=== PATIENT | female | born 1960 | race Caucasian/White ===

== ENCOUNTER 2022-04-03 06:33 | Observation (INO) ==
--- NOTE | 2022-03-06 14:01 | PAT Medication Instructions ---
Medication Instructions Date of Service March 06, 2022 Home Medications omega-3 fatty acids 1,000 mg capsule (Fish Oil Concentrate) 1,000 mg PO HS cimetidine 400 mg tablet 400 mg PO HS docusate sodium 100 mg capsule (Colace) 100 mg PO BID ibuprofen 800 mg tablet 800 mg PO TID PRN Pain polyethylene glycol 3350 17 gram/dose oral powder (Miralax) 17 g PO HS turmeric root extract 500 mg tablet 500 mg PO HS zolpidem 5 mg tablet (Ambien) 5 mg PO HS ASK your surgeon for instructions ibuprofen 800 mg tablet 800 mg PO TID PRN Pain STOP taking 2 weeks before surgery (or as soon as possible if surgery is within 2 weeks) omega-3 fatty acids 1,000 mg capsule (Fish Oil Concentrate) 1,000 mg PO HS turmeric root extract 500 mg tablet 500 mg PO HS DO NOT take the morning of surgery docusate sodium 100 mg capsule (Colace) 100 mg PO BID Take evening before surgery cimetidine 400 mg tablet 400 mg PO HS docusate sodium 100 mg capsule (Colace) 100 mg PO BID polyethylene glycol 3350 17 gram/dose oral powder (Miralax) 17 g PO HS zolpidem 5 mg tablet (Ambien) 5 mg PO HS Other Notes If you have any questions please call us at [phone] or [phone] or [phone] or [phone]
--- NOTE | 2022-03-08 10:41 | Anesthesiology Consultation ---
Date of Service March 08, 2022 Assessment & Plan (1) Encounter for pre-operative examination: Chart Review Chart Review: Acceptable Risk for Surgery and Patient seen in Pre Admission Testing -Pt is NOT a Same Day Joint candidate due to bilateral TKA. Pros and cons discussed regarding one sided TKA vs bilateral TKA- pt wishes to proceed with bilateral TKA Per PAT appt on 03/08/22, patient denies any recent travel or large group activities. Pt is vaccinated for Covid. Will leave to surgeon's discretion if preop Covid testing needed. Educated on importance of using Covid precautions one week prior to surgery Teaching & Discussion Pre-Anesthesia Teaching/Discussion Notes: Instructed NPO after midnight before surgery,except medications with 15 cc of water. Medication instructions provided according to the PAT guidelines. History Surgery Operation Date: 04/03/22 10:40 Proposed Procedures p Bilateral Total Knee Arthroplasty - Travis Drew MD Height/Weight Height: 5 ft 8.5 in Weight: 73 kg Allergies Allergy/AdvReac Type Severity Reaction Status Date / Time codeine Allergy Mild GI SYMPTOMS Verified 03/06/22 13:19 meperidine Allergy Mild N & V Verified 03/06/22 13:19 Medications Home Medications Medication Instructions Recorded Confirmed Last Taken omega-3 fatty acids 1,000 mg 1,000 mg PO HS 03/16/19 03/06/22 Unknown capsule (Fish Oil Concentrate) cimetidine 400 mg tablet 400 mg PO HS 03/06/22 03/06/22 Unknown docusate sodium 100 mg capsule 100 mg PO BID 03/06/22 03/06/22 Unknown (Colace) ibuprofen 800 mg tablet 800 mg PO TID PRN Pain 03/06/22 03/06/22 Unknown polyethylene glycol 3350 17 17 g PO HS 03/06/22 03/06/22 Unknown gram/dose oral powder (Miralax) turmeric root extract 500 mg tablet 500 mg PO HS 03/06/22 03/06/22 Unknown zolpidem 5 mg tablet (Ambien) 5 mg PO HS 03/06/22 03/06/22 Unknown Wheeled Walker #1 ea 03/08/22 03/08/22 Unknown celecoxib 100 mg capsule (Celebrex) 200 mg PO DAILY 30 days #60 caps 03/08/22 03/08/22 Unknown Past Medical History Medical History Degenerative arthritis of knee, bilateral GERD (gastroesophageal reflux disease) Well controlled and stable History of COVID-19 05/2019, had positive antibodies Most recent, early 11/2021, home test, not hosp; "mild symptoms, with headache">resolved. Nausea and vomiting after administration of anesthetic agent "Hospitalized following surgery due to terrible vomiting following surgery/anesthesia" Has worse issues with GA Exercise / Class Metabolic Activity II 4-5 Yardwork/Stairs/Walk up hill (one flight of stairs - no chest pain or SOB ) Past Surgical History Surgical History Hx of arthroscopic knee surgery LT. knee, meniscus repair Hx of cataract extraction rt/lt Hx of cholecystectomy Hx of colonoscopy Hx of hemorrhoidectomy Hx of sigmoidoscopy Past Anesthesia History No Hx of Anesthesia Complications (with exception to PONV (severe with GA)) and No Family Hx of Anesthesia Complications (with exception to mother - severe PONV ) History of PONV History of PONV (significant (improved with pre medicated with IV anti nausea medication)) and Hx of Motion Sickness Social History Smoking Status: Never smoker Do You Dip or Chew Tobacco: No Hx Alcohol Use: Yes Alcohol type: wine alcohol intake frequency: a few times a week Hx Substance Use: No substance use type: does not use Review of Systems Patient denies chest pain, shortness of breath, dyspnea on exertion, cough, wheezing, palpitations. No hx of seizures, stroke, [place], apnea/snoring. No hx of blood clots or blood transfusions Physical Exam Vital Signs VITALS BP 138/86 P 74 TEMP 98.2 SP02 99% RESP 16 Constitutional no acute distress ENMT Mouth: no TMJ clicking Thyromental Distance: < 3.5 Finger Breadths (2.5) Mallampati Class: II Permanent implant on right bottom side Bridge upper left side Neck + limited neck extension (mild) Respiratory normal respiratory effort; no respiratory distress Auscultation: lungs clear to auscultation bilaterally; no wheezes Cardiovascular Rate/Rhythm: regular rate and regular rhythm Heart Sounds: no murmur Vessels: no carotid bruit Musculoskeletal Spine: + pain with cervical ROM Extremities: extremities normal to inspection Psychiatric Orientation: alert Lab Results Anesthesia Preop Results Results Anesthesia Widget: WBC 5.43 K/ul (4.8-10.8) 03/08/22 Hgb 13.6 g/dl (12.0-16.0) 03/08/22 Hct 39.3 % (34.1-44.9) 03/08/22 Plt 244 K/uL (130-400) 03/08/22 Na 141 mmol/L (136-145) 03/08/22 K 4.4 mmol/L (3.5-5.1) 03/08/22 Cl 106 mmol/L (98-107) 03/08/22 CO2 29 mmol/L (21-32) 03/08/22 BUN 10 mg/dl (6-23) 03/08/22 Creat 0.56 mg/dl (0.6-1.2) L 03/08/22 Glucose Level 95 mg/dl (70-99(Fasting)) 03/08/22 PT 11.2 Seconds (9.0-12.0) 03/08/22 PTT 24.3 Seconds (21.0-31.0) 03/08/22 INR 1.1 (0.9-1.1) 03/08/22 Blood Type A Positive 03/08/22 Antibody Screen NEGATIVE 03/08/22 Testing Electrocardiogram Date: 03/08/22 Findings: + NSR @ (61bpm ) Normal EKG per cardio. Chest X-Ray Date: 03/08/22 Findings: + NAD COVID-19 Risk Screen Screening Information COVID-19 Screen Date: 03/08/22 Exposure 21 Days Family/Household +COVID Last 21 Days: No Exposure 10 Days Any COVID Exposure Last 10 Days: No Symptoms Last 10 Days Experienced COVID Sx Last 10 Days: No + COVID 0-90 Days COVID + in Last 0-90 Days: No Risk Plan COVID Risk Plan: No Risk Identified Patient Education COVID Preop Screening Education Complete: Yes
[~2022-04-03 06:33] MED LIST: ACETAMINOPHEN 500 MG TAB PO SCH; BUPIVACAINE LIPOSOME/PF 266 MG, BUPIVACAINE/EPINEPHRINE 50 ML, SODIUM CHLORIDE 0.9% 30 ... INFIL SCH; CeleBREX 200 MG CAP PO SCH; FAMOTIDINE 20 MG TAB PO SCH; LR 60ML/HR IV SCH; METOCLOPRAMIDE HCL 10 MG TABLET PO SCH; Scopolamine 1 MG TDSY TD SCH; TRANEXAMIC ACID 1,000 MG **IV Intra-op IV SCH; ceFAZolin 2000MG 2,000 MG/15 ML SYR IV SCH
[2022-04-03] MEDS ORDERED: ROPIVACAINE 0.5% 5 MG/ML 30 ML VIAL ONE (06:35)
[2022-04-03] MEDS ORDERED: BUPIVACAINE 0.5 % 5 MG/1 ML PF 10ML VIAL ONE (06:35)
--- NOTE | 2022-04-03 06:49 | History & Physical Bridge Note ---
Date of Service April 03, 2022 History & Physical Bridge Note I have examined the patient, reviewed the History & Physical and in the interval since the performance of the History & Physical I have noted the following changes of clinical significance: no changes noted
[2022-04-03] MEDS: LR 500ML BOLUS, THEN 15ML/HR IV SCH (07:23)
[2022-04-03] MEDS ORDERED: PROPOFOL IV EMULSION 10 MG/ML 20 ML VIAL IV ONE ×3 (07:45→12:03)
[2022-04-03] MEDS ORDERED: MIDAZOLAM HCL 1 MG/ML 2ML VIAL ONE ×2 (07:45→11:22)
[2022-04-03] MEDS ORDERED: ONDANSETRON INJ 2 MG/ML 2 ML VIAL IV PRN ×2 (08:11→14:01)
[2022-04-03] MEDS ORDERED: ATROPINE SULFATE 0.1 MG/ML 10ML SYR IV PRN (08:11)
[2022-04-03] MEDS ORDERED: ePHEDrine sulfate 50 MG/ML AMP IV PRN (08:11)
[2022-04-03] MEDS ORDERED: fentaNYL citrate 100 MCG/2 ML VIAL IV PRN (08:11)
[2022-04-03] MEDS ORDERED: BUPIVACAINE LIPOSOME 1.3% 266 MG/20 ML VIAL ONE (08:57)
[2022-04-03] MEDS ORDERED: BUPIVACAINE/EPINEPHRINE 0.25% 1:200,000 30 ML VIAL ONE (08:57)
[2022-04-03] MEDS ORDERED: SODIUM CHLORIDE 0.9% PF 50 ML VIAL ONE (08:57)
[2022-04-03] MEDS ORDERED: ONDANSETRON INJ 2 MG/ML 2 ML VIAL ONE (09:32)
[2022-04-03] MEDS ORDERED: fentaNYL citrate 100 MCG/2 ML VIAL ONE (09:32)
[2022-04-03] MEDS ORDERED: ePHEDrine sulfate 50 MG/ML AMP ONE (09:52)
[2022-04-03] MEDS ORDERED: KETAMINE 50 MG/5 ML SYRINGE ONE (09:57)
[2022-04-03] MEDS ORDERED: PHENYLEPHRINE HCL 10 MG/ML VIAL ONE (11:58)
[2022-04-03] MEDS ORDERED: KETOROLAC 30 MG/ML VIAL ONE (12:17)
--- NOTE | 2022-04-03 12:49 | Operative Report ---
PG Post Operative Report Pre & Post Diagnosis Operation Date: 04/03/22 08:50 Pre-Op Diagnosis: Bilateral Knee Advanced Degenerative Joint Disease Post-Op Diagnosis: Bilateral Knee Advanced Degenerative Joint Disease I identified the patient and participated in the time-out.: Yes Procedure Operation Date: 04/03/22 08:50 Actual Procedures p Bilateral Total Knee Arthroplasty(Bilateral) - Travis Drew MD Surgeon Travis Drew MD Doctor'S Assistant Rashawn Spears PA-C Estimated Blood Loss 100 Findings Consistent with Post-Op Diagnosis Operative findings were advanced bilateral knee DJD. She had extensive grade 4 [id number]-lt-qlys disease most severely affecting the medial compartment of both knees. Both knees were similar severity. She had osteophytes primarily on the medial compartment. Moderate-sized joint effusion with fixed varus deformities to her knees. She had about a 10 degree flexion contracture bilaterally. Fluids 1300 cc Specimens Bilateral knees sent for pathology Drains None Anesthesia Type Spinal MAC Complications none Disposition Accompanied Patient To Recovery: No Indications Patient is a 61-year-old very healthy female has had a long history of bilateral knee pain discomfort describes gotten worse over the past 10 to 15 years. She been through extensive conservative treatment of years which is became less successful. X-rays show progressive severe arthritic the knees. She elected proceed with total knee arthroplasty. She was strongly desiring to both knees at the same time. Description of Procedure Operative implants consisted of: Left-sided implants consisted of: 1. Biomet Vanguard size 65 left posterior stabilized femoral component. 2. Biomet size 71 tibial tray. 3. 14 mm posterior stabilized polyethylene insert. 4. 28 x 8 all Paller patella. Right side implants consisted of: 1. Biomet Vanguard size 65 right posterior stabilized femoral component. 2. Biomet size 71 tibial tray. 3. 12 mm posterior stabilized polyethylene insert. 4. 28 x 8 all Paller patella. The patient was taken to the operating, identified, placed on the operating table supine position. All contact areas were appropriately padded. IV antibiotics tried by anesthesia team. A spinal anesthetic and been implemented in the holding area as well as bilateral abductor canal block. A Wong catheter was placed in sterile fashion. Bilateral thigh tourniquets were placed. Both lower extremities were then prepped and draped in usual sterile fashion. Attention was first drawn to the left leg. Left leg was elevated exsanguinated with use of an Esmarch and the tourniquet was set at 300 mmHg. An anterior approach left knee was then performed to longitudinal incision centered over the patella. Sharp dissection was got through subcutaneous tissue down the extensor mechanism. A medial parapatellar arthrotomy incision was made. Some subperiosteal dissection was carried out medially. The fat pad was resected from Neath patella tendon. Lateral patellofemoral ligament was released. Patella subluxated laterally and the knee was flexed. The osteophytes were taken off distal femur. The ACL and PCL were then released from distal femur. The tibia was subluxated anteriorly. External tibial alignment jig was then placed in the anterior face of the tibia and adjusted 14 mm medially. The proximal tibial cut was made remove about 2 mm of bone from the most deficient aspect medial tibial plateau. Some osteophytes taken off medial and posterior medially. The tibia sized to a size 71. Attention drawn the femur. The distal femur examined the sharp drop with intramedullary canal was suction. A left 5 degree valgus cutting guide was placed. Distal femoral cutting block was pinned in place. Distal femoral cut was made to take an additional 3 mm of bone off the distal femur. Femur was then sized to a size 65. The AP cutting block was pinned parallel to the epicondylar axis which was 3 degrees of external rotation. The anterior cut, anterior chamfer, posterior cut, posterior chamfer cuts were made. The box cutting guide was placed in just slight lateral box cut was made. The knee was flexed. The remnants of the medial and lateral menisci were excised. The osteophyte taken off the posterior aspect of the femur. A trial femoral component was placed. The tibial tray was pinned in maximum external rotation and the drill and stem punch were used to create defect in the proximal tibia for the tibial tray. Knee was then trialed and the 14 mm insert fit most appropriately. Attention drawn the patella. The patella was cleaned of all soft tissues. Patella thickness measured 20 mm in thickness was cut down to 13. Was sized to a size 28 patella. The lug holes were drilled for the 28 patella. The lateral osteophytes removed. Patella button was placed. Knee was taken through range of motion patella tracked nicely with no thumbs test. Attention drawn to placing permanent components. Nupathe all trial components were removed. Bone plug was placed into the distal femur limit blood loss. Double batch Palacos G cement was mixed. A Biomet Vanguard size 65 left posterior stabilized femoral component, a size 71 tibial tray, a 14 mm posterior stabilized polyethylene insert, and a 28 x 8 all Paller patella then cemented in place. The knee was brought out into full extension total cement hardened. Final cement check was then performed. The pericapsular tissues were injected with 50 cc of a combination of 10 cc of Exparel, 25 cc of half percent Marcaine with epinephrine and 15 cc of normal saline. The tourniquet was let down for final tourniquet time of 55 minutes. Hemostasis reduced electrocautery. The patient did receive 1 g tranexamic acid. The extensor mechanism then closed with combination 1 PDS suture #1 Vicryl suture in a [id number] fashion. Extensor mechanism checked found to be intact and the subcutaneous tissue then closed 2 Dexon suture buried erupted fashion skin was closed skin kyle. The leg was then cleaned and dried and sterile dressing was Xeroform, 4 x 4's, ABD pad and sterile cast padding and Sheldon bandage were applied to this knee. During closure of the subcutaneous tissues and skin of the left leg a similar procedure was begun on the right leg. The right leg was Elave exsanguinated with use of an Esmarch in terms playset 300 mmHg. An anterior approach of the right knee was then performed through a longitudinal incision centered over the patella. Sharp dissection Through subcutaneous tissue down the extensor mechanism. Medial parapatellar arthrotomy incision was made. Subperiosteal dissection was carried out medially. The fat pad was resected from Neath patella tendon. Lateral patellofemoral ligament was released. Patella was subluxated laterally and the knee was flexed. The osteophytes taken off distal femur. The ACL and PCL then released from distal femur the tibia subluxated anteriorly. External tibial alignment jig was then placed the interface the tibia and adjusted 14 mm medially. Proximal tibial cut was made removed by millimeter bone from most deficient aspect medial tibial plateau. The tibia sized to a size 71. Some osteophytes taken off medial and posterior medially. Attention drawn the femur. The distal femur during the sharp drop with intramedullary canal was suction. A right 5 degree valgus cutting guide was placed. Distal femoral cutting block was pinned in place. Distal femoral cut was made to take an additional 3 mm of bone off the distal femur. The femur was then sized and sized to a size 65. The AP cutting block was pinned parallel to the epicondylar axis which was 3 degrees of external rotation. The anterior cut, anterior chamfer, posterior cut, posterior chamfer cuts were made. Box cutting guide was placed in just slight lateral box cut was made. The knee was flexed. The remnants of the medial and lateral menisci were excised. The osteophytes were taken off the posterior aspect the femur. A trial femoral component was placed. The tibial tray was pinned in maximum external rotation and the drill and stem punch used to create defect in proximal tibia for the tibial tray. The knee was then trialed and the 12 mm insert fit most appropriately. Attention drawn the patella. The patella was cleaned of all soft tissues. Patella thickness measured 20 mm in thickness was cut down to 13. Was sized to a size 28 patella. The lug holes were drilled for the 28 patella. The lateral osteophytes removed. Patella button was placed. Knee was taken through range of motion and the patella tracked nicely with no thumbs test. Attention drawn to place the permanent components. Nupathe all trial components were removed. A bone plug was placed in the distal femur limit blood loss. Double batch Palacos G cement was mixed. A Biomet Vanguard size 65 right posterior stabilized femoral component, size 71 tibial tray, a 12 mm posterior stabilized polyethylene insert, and a 28 x 8 all Paller patella then cemented in place. New spreadout into full extension total cement hardened. Final cement check was then performed. Pericapsular tissues were injected with total of 50 cc of combination of 10% Exparel, 25 cc of half percent Marcaine with epinephrine and 15 cc of normal saline. The the tourniquet was then let down for final turn time 58 minutes. Hemostasis reduced electrocautery. Extensor mechanism closed with combination 1 PDS suture #1 Vicryl suture in [id number] fashion. Extensor mechanism checked found to be intact the subcutaneous tissues then closed with 2 Dexon suture in buried erupted fashion skin was closed skin kyle. Leg was then cleaned and dried a sterile dressing was Xeroform, 4 x 4's, sterile cast padding, Sheldon bandage were applied. An additional 2 rolls of soft roll and an Sheldon bandage were then applied to the left leg. The patient was then transferred to the recovery room in stable condition. Patient tolerated procedure well and there are no complications. Rashawn Spears, my physician geriatric assistant, was present for the entire procedure. His assistance was essential and required for appropriate patient positioning, prepping and draping, surgical exposure, performing the technical details of the operation, placement the implants, closure of the wound, and placement of the sterile bandage. I attest to the content of the Intraoperative Record and any orders documented therein. Any exceptions are noted below.
--- NOTE | 2022-04-03 13:19 | Anesthesiology Progress Note ---
Date of Service April 03, 2022 Anesthesia Post Procedure Vital Signs Vital Signs: Temp Pulse Resp BP Pulse Ox O2 Del Method O2 Flow Rate 04/03/22 12:45 75 21 116/67 100 Oxymask 6 04/03/22 12:35 72 19 110/64 100 Oxymask 6 04/03/22 12:29 97.2 F L 70 13 113/60 100 Oxymask 6 04/03/22 06:54 98.1 F 94 H 20 149/92 H 97 Room Air Pain Intensity Bilateral Knee: Pain Intensity: 0 Transfer of Care Handoff Completed per policy Notes Mental Status: alert / awake / arousable and participated in evaluation Patient Amnestic to Procedure: Yes Nausea / Vomiting: adequately controlled Pain: adequately controlled Airway Patency, RR, SpO2: stable & adequate BP & HR: stable & adequate Hydration State: stable & adequate Neuraxial Anesthesia: was administered and sensory block is resolving Anesthetic Complications: no major complications apparent and Pt Satisfied with anesthetic care
--- NOTE | 2022-04-03 13:27 | XRay Report ---
XR knee RT 1 or 2V routine, XR knee LT 1 or 2V routine CLINICAL HISTORY: Surgical Post Op TECHNIQUE: 2 views of the bilateral knees were obtained. Comparison: Comparison is made to knee radiographs 03/08/2022 FINDINGS: Patient is status post total knee arthroplasty with expected postsurgical changes including soft tiss ue swelling and subcutaneous emphysema. No periarticular lucency or hardware fracture is seen. IMPRESSION: Expected postoperative appearance of the bilateral knees. ACT 112: Negative or not required by law. Electronically signed by: Rod Garcia M.D. 04/03/2022 1:25 PM
[2022-04-03] MEDS ORDERED: bisacodyL 10 MG SUPP PR PRN (14:01)
[2022-04-03] MEDS ORDERED: ALUMINUM/MAGNESIUM SUSP 30 ML UDC PO PRN (14:01)
[2022-04-03] MEDS ORDERED: MAGNESIUM HYDROXIDE SUSP 30 ML UDC PO PRN (14:01)
[2022-04-03] MEDS ORDERED: diphenhydrAMINE Capsule 25 MG CAP PO PRN (14:01)
[2022-04-03] MEDS ORDERED: NALOXONE HCL 0.4 MG/1 ML VIAL/CARP IV PRN (14:01)
[2022-04-03] MEDS ORDERED: ONDANSETRON 4 MG OD TAB PO PRN (14:12)
[2022-04-03] MEDS: SODIUM CHLORIDE 0.9% 1000ML 1,000 ML IV SCH ×2 (14:19→23:48)
[2022-04-03] MEDS: ACETAMINOPHEN 500 MG TAB PO SCH ×2 (15:29→20:44)
[2022-04-03] MEDS: Scopolamine CHECK PATCH PLACEMENT SCH ×2 (15:29→23:49)
[2022-04-03] MEDS: KETOROLAC 30 MG/ML VIAL IV SCH ×2 (17:03→23:50)
[2022-04-03] MEDS: ASCORBIC ACID 500 MG TAB PO SCH (17:03)
[2022-04-03] MEDS: HYDROmorphone INJ 0.5 MG/0.5 ML SYR IV PRN ×2 (17:38→22:05)
[2022-04-03] MEDS ORDERED: TRANEXAMIC ACID / 0.7% NACL 1,000 MG/100 ML BAG IV SCH (18:45)
[2022-04-03] MEDS: ceFAZolin 1000MG 1,000 MG/7.5 ML SYR IV SCH (18:59)
[2022-04-03] MEDS: METOCLOPRAMIDE HCL INJ 5 MG/ML 2 ML VIAL IV PRN (20:01)
[2022-04-03] MEDS: ASPIRIN 81 MG ECTAB PO SCH (20:45)
[2022-04-03] MEDS: DOCUSATE SODIUM 100 MG CAP PO SCH (20:45)
[2022-04-03] MEDS: OMEGA-3 (PURIFIED FISH OIL) 1 GM CAP PO SCH (20:46)
[2022-04-03] MEDS: FAMOTIDINE 20 MG TAB PO SCH (20:46)
[2022-04-03] MEDS: SENNA 8.6 MG TAB PO SCH (20:46)
[2022-04-03] MEDS: POLYETHYLENE (MIRALAX) 17 GM PACK PO SCH (20:47)
[2022-04-03] MEDS: ZOLPIDEM TARTRATE 5 MG TAB PO SCH (20:48)
[2022-04-03] MEDS ORDERED: DOCUSATE SODIUM/SENNA 50/8.6MG TAB PO SCH (21:00)
[2022-04-03] MEDS ORDERED: DOCUSATE SODIUM 100 MG CAP PO SCH (21:00)
[2022-04-03] MEDS ORDERED: NON-FORMULARY MEDICATION (Turmeric Root Extract 500 mg Tablet) PO SCH (21:00)
[2022-04-04] MEDS: HYDROmorphone HCL 2 MG TAB PO PRN ×3 (01:14→15:33)
[2022-04-04] MEDS: ceFAZolin 1000MG 1,000 MG/7.5 ML SYR IV SCH (02:54)
[2022-04-04] MEDS: HYDROmorphone INJ 0.5 MG/0.5 ML SYR IV PRN ×3 (02:58→21:11)
[2022-04-04] MEDS: METOCLOPRAMIDE HCL INJ 5 MG/ML 2 ML VIAL IV PRN ×3 (02:58→21:08)
[2022-04-04] MEDS: KETOROLAC 30 MG/ML VIAL IV SCH ×3 (05:59→17:05)
[2022-04-04] MEDS: LR 500ML BOLUS, THEN 15ML/HR IV SCH (06:00)
[2022-04-04 07:49] LABS: Hematocrit (blood only) 28.6 % (34.1-44.9); Hemoglobin 9.9 g/dl (12.0-16.0); Mean Corpuscular Hemoglobin 30.8 pg (25.0-34.0); Mean Corpuscular Hgb Conc 34.6 g/dL (32.0-36.0); Mean Corpuscular Volume 89.1 fL (80.0-100.0); Mean Platelet Volume 9.8 fL (9.4-12.3); Platelet Count 180 K/uL (130-400); RDW Coefficient of Variation 12.1 % (11.5-14.5); RDW Standard Deviation 39.1 fL (36.4-46.3); Red Blood Count 3.21 M/uL (3.93-5.22)
[2022-04-04] MEDS ORDERED: dexAMETHasone 10 MG in SYRINGE 0 ML IV SCH (08:00)
[2022-04-04] MEDS: Scopolamine CHECK PATCH PLACEMENT SCH ×2 (08:01→17:05)
[2022-04-04 08:20] LABS: BUN Creatinine Ratio 21.6 (10-20); Calcium 7.7 mg/dl (8.5-10.1); Creatinine Clr Calc Pharmacy 120.5 ml/min; Est GFR (African American) 121.1 ml/min; Est GFR (Non-African American) 104.5 ml/min; Potassium 4.1 mmol/L (3.5-5.1)
[2022-04-04] MEDS: ASCORBIC ACID 500 MG TAB PO SCH ×2 (08:37→17:43)
[2022-04-04] MEDS: MULTIVITAMIN TAB PO SCH (08:37)
[2022-04-04] MEDS: ACETAMINOPHEN 500 MG TAB PO SCH ×3 (08:38→21:12)
[2022-04-04] MEDS: DOCUSATE SODIUM 100 MG CAP PO SCH ×2 (08:38→21:13)
[2022-04-04] MEDS: ASPIRIN 81 MG ECTAB PO SCH ×2 (08:38→21:13)
--- NOTE | 2022-04-04 15:32 | Progress Notes ---
DATE OF SERVICE: 04/04/2022. SUBJECTIVE: A 61-year-old female postoperative day 1 from bilateral knee replacements. She is doing okay. Dizzy earlier today with therapy. She was able to get up and out of bed into a chair. Still having quite a bit of pain and discomfort in both knees. No chest pain or shortness of breath. Carlo e intermittent nausea. OBJECTIVE: VITAL SIGNS: Temperature 36.5. Vital signs are stable. GENERAL: Shows a pleasant middle-aged female. She is lying in bed, looks reasonably comfortable. LUNGS: Clear to auscultation. HEART: Regular rate and rhythm. ABDOMEN: Soft, nontender, nondistended. EXTREMITIES: Grossly neurovascularly intact except as follows. Examination of both lower extremities reveals the legs to be well aligned. Dressings are clean, dry, and intact. She can dorsiflex and plantarflex both feet appropriately. She is neurologically intac t. LABORATORY DATA: Hemoglobin 9.9. Hematocrit 28.6. Electrolytes are stable. ASSESSMENT: A 61-year-old female postoperative day 1 from bilateral knee replacements, doing okay. She struggled a little bit with pain, which is not unexpected. She is neurologically intact. PLAN: 1. DVT prophylaxis includes thigh-high TEDs, SCDs, and aspirin twice a day. 2. PT/OT, weightbear as tolerated. Bilateral knee protocol. 3. Pain control, doing okay with current pain regimen. We will try and maximize her pain control wi th multiple modalities including Tylenol, Toradol, Dilaudid. Also, providing Decadron. 4. Disposition: She is planning to be discharged to home with some home health once adequately remington elayne and medically stable and getting around safely. Job ID: [id number]
[2022-04-04] MEDS: ZOLPIDEM TARTRATE 5 MG TAB PO SCH (21:11)
[2022-04-04] MEDS: OMEGA-3 (PURIFIED FISH OIL) 1 GM CAP PO SCH (21:14)
[2022-04-04] MEDS: FAMOTIDINE 20 MG TAB PO SCH (21:14)
[2022-04-04] MEDS: POLYETHYLENE (MIRALAX) 17 GM PACK PO SCH (21:14)
[2022-04-04] MEDS: SENNA 8.6 MG TAB PO SCH (21:14)
[2022-04-05] MEDS: KETOROLAC 30 MG/ML VIAL IV SCH ×3 (00:33→12:35)
[2022-04-05] MEDS: Scopolamine CHECK PATCH PLACEMENT SCH ×3 (00:33→16:03)
[2022-04-05] MEDS: LR 500ML BOLUS, THEN 15ML/HR IV SCH (00:34)
[2022-04-05] MEDS: HYDROmorphone HCL 2 MG TAB PO PRN ×3 (00:57→14:56)
[2022-04-05 06:38] LABS: Hematocrit (blood only) 28.7 % (34.1-44.9); Mean Corpuscular Hemoglobin 31.2 pg (25.0-34.0); Mean Corpuscular Hgb Conc 34.8 g/dL (32.0-36.0); Mean Corpuscular Volume 89.4 fL (80.0-100.0); Mean Platelet Volume 9.7 fL (9.4-12.3); Platelet Count 193 K/uL (130-400); RDW Coefficient of Variation 12.2 % (11.5-14.5); RDW Standard Deviation 39.9 fL (36.4-46.3); Red Blood Count 3.21 M/uL (3.93-5.22); White Blood Count 7.42 K/ul (4.8-10.8)
[2022-04-05 07:03] LABS: BUN Creatinine Ratio 16.7 (10-20); Calcium 8.6 mg/dl (8.5-10.1); Est GFR (African American) 123.6 ml/min; Est GFR (Non-African American) 106.6 ml/min; Potassium 3.8 mmol/L (3.5-5.1)
--- NOTE | 2022-04-05 07:47 | Progress Notes ---
DATE OF SERVICE: 04/05/2022. SUBJECTIVE: A 61-year-old female postoperative day 2 from bilateral knee replacement. She is doing quite a bit better this morning. Feels like she has turned a corner as far as pain and function. No chest pain or shortness of breath. Not feeling dizzy or lightheaded. OBJECTIVE: VITAL SIGNS: Temperature 36.8. Vital signs are stable. GENERAL: Shows a pleasant middle-aged female. She is sitting up in bed, looks reasonably comfortabl e this morning. EXTREMITIES: Examination of both legs reveals legs to be well aligned. Dressings are clean, dry, an d intact. Fairly mild swelling. She is neurologically intact. LABORATORY DATA: Hemoglobin 10.0. Hematocrit 28.7. Electrolytes are pending. ASSESSMENT: A 61-year-old female postoperative day 2 from bilateral knee replacements, doing a bit b augustin. The pain seems to be pretty well controlled. PLAN: 1. DVT prophylaxis includes thigh-high TEDs, SCDs, and aspirin twice a day. 2. PT/OT, weightbear as tolerated. Bilateral knee protocol. 3. Pain control, doing okay with current pain regimen. 4. Disposition: Plan to discharge to home with some home health once adequately recovered and getti ng around safely. We will see how she does in therapy today. Job ID: [id number]
[2022-04-05] MEDS: ACETAMINOPHEN 500 MG TAB PO SCH ×2 (08:13→12:35)
[2022-04-05] MEDS: ASPIRIN 81 MG ECTAB PO SCH (08:13)
[2022-04-05] MEDS: ASCORBIC ACID 500 MG TAB PO SCH (08:14)
[2022-04-05] MEDS: DOCUSATE SODIUM 100 MG CAP PO SCH (08:14)
[2022-04-05] MEDS: MULTIVITAMIN TAB PO SCH (08:14)
--- NOTE | 2022-04-11 06:45 | Discharge Summary ---
Date of Service April 11, 2022 Discharge Data Procedures Performed Operation Date: 04/03/22 08:50 Actual Procedures p Bilateral Total Knee Arthroplasty(Bilateral) - Travis Drew MD Hospital Course (1) Status post total knee replacement, bilateral: This is a 61 year old patient admitted on 04/03/22 and underwent bilateral total knee replacements. She tolerated the procedure well and there were no complications. Transferred to the PACU post op and later to the orthopedic floor for further care. She was given ancef for antibiotic prophylaxis. She was also given DOUG stockings, SCDs, and aspirin for DVT prophylaxis. Hemoglobin, hematocrit, and vital signs were monitored during her hospital stay and remained stable. Did not require any blood transfusions. There were no complications dur ing her hospital stay. By post op day #2 the patient was tolerating a regular diet, pain was reasonably controlled with oral pain medicine, and she was participating in physical therapy. On post op day #2 the patient was discharged home and set up with home health care. She was given printed discharge instructions including prescriptions for extra strength tylenol, aspirin, cefadroxil, ketorolac, zofran, and hydromorphone. Continue physical therapy, weight bearing as tolerated. Continue DOUG stockings. Follow up approximately 2 weeks post op or sooner if there are problems or concerns. Coding Level of Care Code None Diagnoses Status post total knee replacement, bilateral Z96.653
== END 2022-04-05 18:32 | disposition home health service (06) ==
LOC: 3E 06:33 → ASU 06:33
DX: Z79.82 Long term (current) use of aspirin; M17.0 Bilateral primary osteoarthritis of knee; Z79.899 Other long term (current) drug therapy; Z88.5 Allergy status to narcotic agent; Z88.8 Allergy status to other drugs, medicaments and biological substances